=== PATIENT | female | born 1950 | race Two or more races ===

== ENCOUNTER → 2020-07-26 | Outpatient (CLI) | payer OTHER | END | disposition home or self-care (01) | LOC: XYW 09:42 | PROVIDERS: ATTEND Psychiatry & Neurology Neurology | DX: I67.82 Cerebral ischemia (principal); G93.89 Other specified disorders of brain; J34.89 Other specified disorders of nose and nasal sinuses; R25.1 Tremor, unspecified | CPT/HCPCS: 70551 ==

== ENCOUNTER 2021-05-14 09:42 | Emergency (ER) | payer OTHER ==
[~2021-05-14] VITALS: Ht 162.6 cm; Wt 90.7 kg
[2021-05-14] MEDS ORDERED: HYDROcodone-ACET 10/325MG TAB PO ONE (10:15)
[2021-05-14 10:23] LABS: Basophils # (auto) 0 10 ^3/uL (0-0.2); Basophils % (auto) 0.5 % (0.0-2.0); Eosinophils # (auto) 0 10 ^3/uL (0-0.8); Eosinophils % (auto) 0.2 % (0.0-7.0); Hemoglobin 12.5 g/dL (12.2-16.2); Lymphocytes % (auto) 13.6 % (10.0-50.0); Mean Corpuscular Hemoglobin 32.2 pg (28.0-32.0); Mean Corpuscular Hgb Conc. 33.8 g/dL (32.0-36.0); Mean Corpuscular Volume 95.1 fL (80.0-100.0); Monocytes # (auto) 0.6 10 ^3/uL (0-1.3); Neutrophils # (auto) 5.6 10 ^3/uL (1.6-8.6); Neutrophils % (auto) 77.7 % (37.0-80.0); Nucleated Red Blood Cells % 0.1 %; Red Blood Cells 3.89 10^6/uL (4.0-5.20); Red Cell Distribution Width 13.1 % (11.8-14.3); White Blood Cell 7.3 10^3/uL (4.4-10.8)
[2021-05-14 10:41] LABS: Albumin 2.9 g/dL (3.4-5.0); Calcium 8.8 mg/dL (8.5-10.1); Potassium 3.6 mmol/L (3.5-5.1)
[2021-05-14 10:45] LABS: BUN/Creatinine Ratio 14.3; Bilirubin, Total 1.2 mg/dL (0.2-1.0); Total Protein 8.1 g/dL (6.4-8.2)
[2021-05-14 12:00] VITALS: BP 136/62
[2021-05-14 12:18] LABS: Urine Bacteria NONE SEEN /hpf (None Seen); Urine Blood Negative /uL (Negative); Urine Mucus FEW (None Seen); Urine Specific Gravity 1.018 (1.001-1.035); Urine WBC 2 /hpf (0 - 5)
== END 2021-05-14 12:56 | disposition home or self-care (01) ==
LOC: EDBD 09:42 → ER 09:42
DX: M51.36 Other intervertebral disc degeneration, lumbar region (principal); E11.9 Type 2 diabetes mellitus without complications; I10 Essential (primary) hypertension; Z90.89 Acquired absence of other organs
CPT/HCPCS: 36415; 72131; 80053; 81001; 85025

== ENCOUNTER → 2022-01-24 | Outpatient (CLI) | payer OTHER ==
[2022-01-24 13:04] LABS: Basophils # (auto) 0 10 ^3/uL (0-0.2); Basophils % (auto) 0.5 % (0.0-2.0); Eosinophils # (auto) 0.1 10 ^3/uL (0-0.8); Eosinophils % (auto) 1.5 % (0.0-7.0); Hematocrit 39.5 % (36.0-46.0); Hemoglobin 13.7 g/dL (12.2-16.2); Lymphocytes # (auto) 2.3 10 ^3/uL (0.4-5.4); Lymphocytes % (auto) 42.7 % (10.0-50.0); Mean Corpuscular Hemoglobin 33.2 pg (28.0-32.0); Mean Corpuscular Hgb Conc. 34.7 g/dL (32.0-36.0); Mean Corpuscular Volume 95.7 fL (80.0-100.0); Monocytes # (auto) 0.3 10 ^3/uL (0-1.3); Monocytes % (auto) 6.5 % (0.0-12.0); Neutrophils # (auto) 2.6 10 ^3/uL (1.6-8.6); Neutrophils % (auto) 48.8 % (37.0-80.0); Red Blood Cells 4.13 10^6/uL (4.0-5.20); Red Cell Distribution Width 13.1 % (11.8-14.3); White Blood Cell 5.4 10^3/uL (4.4-10.8)
[2022-01-24 13:46] LABS: Potassium 4.8 mmol/L (3.5-5.1)
[2022-01-24 13:47] LABS: Albumin 3.8 g/dL (3.4-5.0); Calcium 8.9 mg/dL (8.5-10.1)
[2022-01-24 13:53] LABS: BUN/Creatinine Ratio 19.8; Bilirubin, Total 1.1 mg/dL (0.2-1.0); Total Protein 7.6 g/dL (6.4-8.2)
== END | disposition home or self-care (01) ==
LOC: LAB 12:38
PROVIDERS: ATTEND Student in an Organized Health Care Education/Training Program
DX: Z12.11 Encounter for screening for malignant neoplasm of colon (principal); I10 Essential (primary) hypertension; E11.9 Type 2 diabetes mellitus without complications; E78.5 Hyperlipidemia, unspecified
CPT/HCPCS: 36415; 80053; 80061; 82043; 83036; 85025

== ENCOUNTER → 2022-01-24 | Outpatient (CLI) | payer OTHER | END | disposition home or self-care (01) | LOC: LAB 13:01 | PROVIDERS: ATTEND Internal Medicine | DX: Z12.11 Encounter for screening for malignant neoplasm of colon (principal) | CPT/HCPCS: 82270 ==

== ENCOUNTER 2022-04-08 08:49 | Inpatient (IN) | payer OTHER ==
[2022-04-04 14:33] LABS: Basophils # (auto) 0 10 ^3/uL (0-0.2); Basophils % (auto) 0.4 % (0.0-2.0); Eosinophils # (auto) 0.1 10 ^3/uL (0-0.8); Eosinophils % (auto) 1.8 % (0.0-7.0); Hemoglobin 13.5 g/dL (12.2-16.2); Lymphocytes # (auto) 2.5 10 ^3/uL (0.4-5.4); Lymphocytes % (auto) 38.9 % (10.0-50.0); Mean Corpuscular Hemoglobin 33.2 pg (28.0-32.0); Mean Corpuscular Hgb Conc. 34.7 g/dL (32.0-36.0); Mean Corpuscular Volume 95.5 fL (80.0-100.0); Monocytes # (auto) 0.4 10 ^3/uL (0-1.3); Monocytes % (auto) 6.8 % (0.0-12.0); Neutrophils # (auto) 3.3 10 ^3/uL (1.6-8.6); Neutrophils % (auto) 52.1 % (37.0-80.0); Nucleated Red Blood Cells % 0.2 %; Red Blood Cells 4.08 10^6/uL (4.0-5.20); Red Cell Distribution Width 13.5 % (11.8-14.3); White Blood Cell 6.3 10^3/uL (4.4-10.8)
[2022-04-04 14:42] LABS: Urine Bacteria NONE SEEN /hpf (None Seen); Urine Blood Negative /uL (Negative); Urine Hyaline Cast FEW /lpf (0 - 2); Urine Specific Gravity 1.024 (1.001-1.035); Urine WBC 6 /hpf (0 - 5)
[2022-04-04 14:46] LABS: INR 1.13 (0.9-1.15); Partial Thromboplastin Time 24.6 sec (24.6-33.4)
[2022-04-04 14:50] LABS: Albumin 4.1 g/dL (3.4-5.0); Calcium 8.8 mg/dL (8.5-10.1); Potassium 4.6 mmol/L (3.5-5.1)
[2022-04-04 14:53] LABS: BUN/Creatinine Ratio 26.5; Bilirubin, Total 0.7 mg/dL (0.2-1.0); Total Protein 7.9 g/dL (6.4-8.2)
[~2022-04-08] VITALS: Ht 162.6 cm; Wt 77.9 kg
[~2022-04-08 08:49] MED LIST: AMLO-496 PO; LOSA-39 PO; METF-490 PO; METO-159 PO; PANT40TA2 PO; SERT-160 PO; SIMV10TA84 PO
[2022-04-08] MEDS ORDERED: ceFAZolin 1GM/50ML 100 ML IV ONE (09:20)
[2022-04-08] MEDS ORDERED: ACETAMINOPHEN IV 100 ML IV ONE (09:20)
[2022-04-08] MEDS ORDERED: PREGABALIN CAPSULE 75 MG CAP PO ONE (09:30)
[2022-04-08] MEDS ORDERED: ACETAMINOPHEN IV 1000 MG/100ML (10MG/ML) IV ONE (09:30)
[2022-04-08] MEDS ORDERED: CELECOXIB 100 MG CAP PO ONE (09:30)
[2022-04-08] MEDS ORDERED: KETOROLAC TROMETH 30 MG/ML 1ML VIAL ONE (10:26)
[2022-04-08] MEDS ORDERED: VANCOMYCIN HCL 1000 MG VL ONE (10:26)
[2022-04-08] MEDS ORDERED: TRANEXAMIC ACID 20 ML ONE (10:27)
[2022-04-08] MEDS ORDERED: fentaNYL CITRATE 100 MCG/2 ML VL ONE (10:39)
[2022-04-08] MEDS ORDERED: MIDAZOLAM HCL 2MG/2ML 2ml VIAL (1mg/ml) ONE (10:39)
[2022-04-08] MEDS ORDERED: GLYCOPYRROLATE 0.2 MG/ML 1ML VIAL ONE (10:39)
[2022-04-08] MEDS ORDERED: ONDANSETRON HCL 4 MG/2 ML VIAL ONE (10:39)
[2022-04-08] MEDS ORDERED: PROPOFOL 10 MG/ML 20 ML IV ONE (10:39)
[2022-04-08] MEDS ORDERED: KETAMINE HCL 10 ML ONE (10:39)
[2022-04-08] MEDS ORDERED: ePHEDrine SULFATE 50 MG/ML AMP ONE (10:39)
[2022-04-08] MEDS ORDERED: MORPHINE SULF PF 5 MG/10 ML VIAL ONE (10:53)
[2022-04-08] MEDS ORDERED: BUPIVACAINE 0.75% INJ 10ML MPV SDV IJ ONE (10:55)
[2022-04-08] MEDS ORDERED: BUPIVACAINE/DEXTROSE MPF 0.75% 2 ML AMP IT ONE (10:58)
[2022-04-08] MEDS ORDERED: HYDROmorphone HCL 2 MG/ML VL/or syr IV PRN (13:00)
[2022-04-08] MEDS: LACTATED RINGER'S 1,000 ML IV SCH ×2 (13:00→21:27)
[2022-04-08] MEDS ORDERED: ceFAZolin 1GM/50ML 50 ML IV SCH (13:00)
[2022-04-08] MEDS ORDERED: DEXTROSE (50%) 50ML SYRG IV PRN (13:00)
[2022-04-08] MEDS ORDERED: ONDANSETRON HCL 4 MG/2 ML VIAL IV PRN ×3 (13:00→14:00)
[2022-04-08] MEDS ORDERED: diphenhdrAMINE HCL 50 MG/1 ML VL IV PRN (14:00)
[2022-04-08] MEDS ORDERED: KETOROLAC TROMETH 30 MG/ML 1ML VIAL IV PRN (14:00)
[2022-04-08] MEDS: SODIUM CHLOR 0.9% PF (SALINE LOCK) 10ML VIAL/SYR IV SCH ×2 (14:00→20:42)
[2022-04-08] MEDS ORDERED: NALOXONE HCL 0.4 MG/ML VIAL IV PRN (14:00)
[2022-04-08] MEDS ORDERED: DexAMETHasone SOD PHOS 10MG/1ML VIAL INJ IV PRN (14:00)
[2022-04-08] MEDS ORDERED: ACCU-CHEK COMFORT CURVE STRIP VI ONE (14:00)
[2022-04-08] MEDS: ceFAZolin 1GM/50ML 50 ML IV SCH ×2 (17:00→22:16)
[2022-04-08] MEDS: ACCU-CHEK COMFORT CURVE STRIP VI SCH ×2 (17:00→21:51)
[2022-04-08] MEDS: PATIENTS OWN MEDICATION (Simvastatin 10 MG) PO SCH (18:00)
[2022-04-08] MEDS: InsuLIN REG 1unit/0.01ml Soln (100units/ml) SC SCH ×2 (18:30→21:48)
[2022-04-08] MEDS ORDERED: InsuLIN REG 1unit/0.01ml Soln (100units/ml) ONE (18:43)
[2022-04-08] MEDS: LOSARTAN POTASSIUM 50 MG TAB PO SCH (20:42)
[2022-04-08] MEDS: SERTRALINE HCL 50 MG TAB PO SCH (20:43)
[2022-04-08] MEDS: DOCUSATE SOD 100 MG CAP PO SCH (20:43)
[2022-04-08 21:06] VITALS: BP 131/61
[2022-04-08] MEDS: METOPROLOL TARTRATE 50 MG TAB PO SCH (21:26)
[2022-04-08] MEDS: metFORMIN HYDROCHLORIDE 500 MG TAB PO SCH (21:51)
[2022-04-08 22:06] VITALS: BP 103/77
[2022-04-08 23:06] VITALS: BP 116/57
[2022-04-09] VITALS (17 sets, daily range): BP systolic 113–145; BP diastolic 40–98
[2022-04-09] MEDS: ceFAZolin 1GM/50ML 50 ML IV SCH (04:18)
[2022-04-09] MEDS: SODIUM CHLOR 0.9% PF (SALINE LOCK) 10ML VIAL/SYR IV SCH ×3 (05:25→21:31)
[2022-04-09] MEDS: ACCU-CHEK COMFORT CURVE STRIP VI SCH ×4 (06:20→21:30)
[2022-04-09] MEDS: InsuLIN REG 1unit/0.01ml Soln (100units/ml) SC SCH ×4 (06:21→21:29)
[2022-04-09 06:31] LABS: Hematocrit 36.1 % (36.0-46.0)
[2022-04-09 06:52] LABS: Albumin 3.5 g/dL (3.4-5.0); Calcium 8.5 mg/dL (8.5-10.1)
[2022-04-09 07:05] LABS: Bilirubin, Total 0.5 mg/dL (0.2-1.0); Total Protein 6.6 g/dL (6.4-8.2)
[2022-04-09] MEDS: metFORMIN HYDROCHLORIDE 500 MG TAB PO SCH ×2 (09:50→21:31)
[2022-04-09] MEDS: METOPROLOL TARTRATE 50 MG TAB PO SCH ×2 (09:51→21:28)
[2022-04-09] MEDS: amLODIPine BESYLATE 5 MG TAB PO SCH (09:52)
[2022-04-09] MEDS: PANTOPRAZOLE 40 MG TAB PO SCH (09:52)
[2022-04-09] MEDS: ENOXAPARIN SOD 40 MG/0.4 ML SYRINGE SC SCH (09:53)
[2022-04-09] MEDS: SERTRALINE HCL 50 MG TAB PO SCH ×2 (09:53→21:29)
[2022-04-09] MEDS: DOCUSATE SOD 100 MG CAP PO SCH ×2 (10:00→21:32)
[2022-04-09] MEDS ORDERED: FUROSEMIDE 20 MG/2 ML VIAL IV ONE (12:15)
[2022-04-09] MEDS ORDERED: HYDROmorphone HCL 2 MG/ML VL/or syr IV PRN (12:15)
[2022-04-09] MEDS: PATIENTS OWN MEDICATION (Simvastatin 10 MG) PO SCH (18:00)
[2022-04-09] MEDS: LOSARTAN POTASSIUM 50 MG TAB PO SCH (18:19)
[2022-04-09] MEDS: HYDROcodone-ACET 5/325MG TAB PO PRN (21:32)
[2022-04-10] MEDS: HYDROcodone-ACET 5/325MG TAB PO PRN ×2 (02:40→10:02)
[2022-04-10 05:00] VITALS: BP 149/63
[2022-04-10] MEDS: SODIUM CHLOR 0.9% PF (SALINE LOCK) 10ML VIAL/SYR IV SCH (05:26)
[2022-04-10] MEDS: InsuLIN REG 1unit/0.01ml Soln (100units/ml) SC SCH ×2 (06:05→11:30)
[2022-04-10] MEDS: ACCU-CHEK COMFORT CURVE STRIP VI SCH ×2 (06:06→11:30)
[2022-04-10 07:17] LABS: Basophils # (auto) 0 10 ^3/uL (0-0.2); Basophils % (auto) 0.1 % (0.0-2.0); Eosinophils # (auto) 0 10 ^3/uL (0-0.8); Eosinophils % (auto) 0.2 % (0.0-7.0); Hematocrit 34.1 % (36.0-46.0); Hemoglobin 11.7 g/dL (12.2-16.2); Lymphocytes # (auto) 0.9 10 ^3/uL (0.4-5.4); Lymphocytes % (auto) 14.3 % (10.0-50.0); Mean Corpuscular Hemoglobin 33.2 pg (28.0-32.0); Mean Corpuscular Hgb Conc. 34.4 g/dL (32.0-36.0); Mean Corpuscular Volume 96.7 fL (80.0-100.0); Monocytes # (auto) 0.5 10 ^3/uL (0-1.3); Monocytes % (auto) 7.3 % (0.0-12.0); Neutrophils # (auto) 4.9 10 ^3/uL (1.6-8.6); Neutrophils % (auto) 78.1 % (37.0-80.0); Nucleated Red Blood Cells % 0.2 %; Red Blood Cells 3.53 10^6/uL (4.0-5.20); Red Cell Distribution Width 13.4 % (11.8-14.3); White Blood Cell 6.3 10^3/uL (4.4-10.8)
[2022-04-10 08:36] VITALS: BP 142/76
[2022-04-10 08:37] LABS: BUN/Creatinine Ratio 31.8; Calcium 8.6 mg/dL (8.5-10.1); Potassium 3.9 mmol/L (3.5-5.1)
[2022-04-10] MEDS: DOCUSATE SOD 100 MG CAP PO SCH (10:00)
[2022-04-10] MEDS: metFORMIN HYDROCHLORIDE 500 MG TAB PO SCH (10:02)
[2022-04-10] MEDS: ENOXAPARIN SOD 40 MG/0.4 ML SYRINGE SC SCH (10:02)
[2022-04-10] MEDS: PANTOPRAZOLE 40 MG TAB PO SCH (10:03)
[2022-04-10] MEDS: SERTRALINE HCL 50 MG TAB PO SCH (10:03)
[2022-04-10] MEDS: amLODIPine BESYLATE 5 MG TAB PO SCH (10:03)
[2022-04-10] MEDS: METOPROLOL TARTRATE 50 MG TAB PO SCH (10:03)
[2022-04-10 11:32] VITALS: BP 142/76
[2022-04-10 12:47] VITALS: BP 146/86
== END 2022-04-10 13:20 | disposition home health service (06) | DRG 470 ==
LOC: SUR 08:49 → TELE 15:22 → TELE-CENTR 20:13
PROVIDERS: ADMIT Psychiatry & Neurology Neurology; ATTEND Internal Medicine
PROC: 0SRD0J9 Replacement of Left Knee Joint with Synthetic Substitute, Cemented, Open Approach (ICD-10-PCS; principal; 2022-04-08 11:05)
DX: M17.12 Unilateral primary osteoarthritis, left knee (principal); Z20.822 Contact with and (suspected) exposure to COVID-19; E11.9 Type 2 diabetes mellitus without complications; E66.9 Obesity, unspecified; F32.A Depression, unspecified; E78.5 Hyperlipidemia, unspecified; I10 Essential (primary) hypertension; Z68.29 Body mass index [BMI] 29.0-29.9, adult
CPT/HCPCS: 36415; 71045; 73562; 80048; 80053; 81001; 82962; 85014; 85018; 85025; 85610; 85730; 86850; 86900; 86901; 97110; 97116; G0378; J0131; J0690; J1815; J1885; J2250; J2405; J2704; J3490

== ENCOUNTER → 2022-11-06 | Outpatient (CLI) | payer OTHER ==
[~2022-11-06] MED LIST changes: -AMLO-496 PO; +AMLO1TAB23 PO; -LOSA-39 PO; +LOSA100T58 PO; +SIMV10TA20 PO; -SIMV10TA84 PO
[2022-11-06 13:30] LABS: Basophils # (auto) 0 10 ^3/uL (0-0.2); Basophils % (auto) 0.3 % (0.0-2.0); Eosinophils # (auto) 0.1 10 ^3/uL (0-0.8); Eosinophils % (auto) 1.7 % (0.0-7.0); Hemoglobin 13.3 g/dL (12.2-16.2); Mean Corpuscular Hemoglobin 32.4 pg (28.0-32.0); Mean Corpuscular Hgb Conc. 33.3 g/dL (32.0-36.0); Mean Corpuscular Volume 97.1 fL (80.0-100.0); Monocytes # (auto) 0.4 10 ^3/uL (0-1.3); Monocytes % (auto) 6.3 % (0.0-12.0); Neutrophils # (auto) 3.5 10 ^3/uL (1.6-8.6); Neutrophils % (auto) 57.7 % (37.0-80.0); Nucleated Red Blood Cells % 0.1 %; Red Blood Cells 4.12 10^6/uL (4.0-5.20)
[2022-11-06 14:04] LABS: Albumin 3.9 g/dL (3.4-5.0); Calcium 9.1 mg/dL (8.5-10.1); Potassium 4.9 mmol/L (3.5-5.1)
[2022-11-06 14:07] LABS: BUN/Creatinine Ratio 25.3 (10.0-20.0)
[2022-11-06 14:09] LABS: Bilirubin, Total 0.9 mg/dL (0.2-1.0); Total Protein 7.7 g/dL (6.4-8.2)
[2022-11-06 18:30] LABS: Micro Albumin 93.8 mg/L (0-30.0)
== END | disposition home or self-care (01) ==
LOC: LAB 12:54
PROVIDERS: ATTEND Internal Medicine
DX: E11.9 Type 2 diabetes mellitus without complications (principal); E66.9 Obesity, unspecified
CPT/HCPCS: 36415; 80053; 80061; 82043; 82270; 82306; 82570; 83036; 84439; 84443; 85025

== ENCOUNTER → 2023-07-14 | Outpatient (CLI) | payer OTHER ==
[~2023-07-14] VITALS: Ht 160 cm; Wt 77.1 kg
[~2023-07-14] MED LIST changes: +LOSA-535 PO; -LOSA100T58 PO
[2023-07-14] MEDS: ADENOSINE 65 MG in GIVE UN-DILUTED 0 ML IV STA (12:31)
== END | disposition home or self-care (01) ==
LOC: XYW 10:11
PROVIDERS: ATTEND Internal Medicine
DX: Z01.810 Encounter for preprocedural cardiovascular examination (principal); M46.06 Spinal enthesopathy, lumbar region; M19.90 Unspecified osteoarthritis, unspecified site; M17.10 Unilateral primary osteoarthritis, unspecified knee; I10 Essential (primary) hypertension; E11.9 Type 2 diabetes mellitus without complications; E78.5 Hyperlipidemia, unspecified
CPT/HCPCS: 78452; 93017; A9500; J0153

== ENCOUNTER → 2023-11-18 | Outpatient (CLI) | payer OTHER ==
[2023-11-19 11:53] LABS: Urine Bacteria None Seen /hpf (None Seen); Urine Blood Negative /uL (Negative); Urine Clarity Clear (Clear); Urine Color Light-Yellow (Yellow); Urine Protein, UAD Negative (Negative); Urine Specific Gravity 1.017 (1.001-1.035); Urine Urobilinogen Normal (Negative); Urine WBC 18 /hpf (0 - 5)
== END | disposition home or self-care (01) ==
LOC: LAB 14:12
PROVIDERS: ATTEND Internal Medicine
DX: N39.0 Urinary tract infection, site not specified (principal); R32 Unspecified urinary incontinence
CPT/HCPCS: 81001; 87086

== ENCOUNTER 2023-12-01 16:10 | Emergency (ER) | payer OTHER ==
[~2023-12-01] VITALS: Ht 160 cm; Wt 80.9 kg
[2023-12-01 18:50] VITALS: BP 179/62; PULSE 68; RESP 18; TEMP 98; O2SAT 98
== END 2023-12-01 20:05 | disposition home or self-care (01) ==
LOC: ER 16:10
DX: S93.602A Unspecified sprain of left foot, initial encounter (principal); E11.9 Type 2 diabetes mellitus without complications; I10 Essential (primary) hypertension; Z79.899 Other long term (current) drug therapy; Z90.49 Acquired absence of other specified parts of digestive tract; Z98.891 History of uterine scar from previous surgery; Z98.890 Other specified postprocedural states; W18.09XA Striking against other object with subsequent fall, initial encounter; Y93.89 Activity, other specified; Y92.89 Other specified places as the place of occurrence of the external cause; Y99.8 Other external cause status
CPT/HCPCS: 73630

== ENCOUNTER → 2024-01-20 | Outpatient (CLI) | payer OTHER | END | disposition home or self-care (01) | LOC: LAB 14:30 | PROVIDERS: ATTEND Student in an Organized Health Care Education/Training Program | DX: Z12.11 Encounter for screening for malignant neoplasm of colon (principal) | CPT/HCPCS: 82270 ==

== ENCOUNTER → 2024-04-06 | Outpatient (CLI) | payer OTHER ==
[2024-04-06 12:18] LABS: Urine Bacteria None Seen /hpf (None Seen)
[2024-04-06 12:33] LABS: Urine Blood 1+ /uL (Negative); Urine Clarity Ex.Turbid (Clear); Urine Color Yellow (Yellow); Urine Hyaline Cast MOD /lpf (0 - 2); Urine Protein, UAD 2+ (Negative); Urine Specific Gravity 1.023 (1.001-1.035); Urine Squamous Epithelial Cell FEW /hpf (<5); Urine Urobilinogen Normal (Negative); Urine WBC 2174 /hpf (0 - 5); Urine WBC Clumps PRESENT /hpf (None Seen)
[2024-04-06 12:55] LABS: Basophils # (auto) 0 10 ^3/uL (0-0.2); Basophils % (auto) 0.4 % (0.0-2.0); Eosinophils # (auto) 0.1 10 ^3/uL (0-0.8); Eosinophils % (auto) 2.8 % (0.0-7.0); Hematocrit 39.3 % (36.0-46.0); Hemoglobin 13.3 g/dL (12.2-16.2); Lymphocytes # (auto) 1.6 10 ^3/uL (0.4-5.4); Lymphocytes % (auto) 31.4 % (10.0-50.0); Mean Corpuscular Hemoglobin 32.8 pg (28.0-32.0); Mean Corpuscular Hgb Conc. 33.8 g/dL (32.0-36.0); Mean Corpuscular Volume 97.1 fL (80.0-100.0); Monocytes # (auto) 0.3 10 ^3/uL (0-1.3); Monocytes % (auto) 6.8 % (0.0-12.0); Neutrophils % (auto) 58.6 % (37.0-80.0); Nucleated Red Blood Cells % 0.1 %; Platelet Count (auto) 144 10^3/uL (140-450); Red Blood Cells 4.05 10^6/uL (4.0-5.20); White Blood Cell 5.1 10^3/uL (4.4-10.8)
[2024-04-06 13:00] LABS: Alanine Aminotransferase 13 U/L (7-40); Albumin 4.5 g/dL (3.2-4.8); Alkaline Phosphatase 97 U/L (46-116); Anion Gap 8 (5-15); Aspartate Aminotransferase 17 U/L (13-40); BUN/Creatinine Ratio 15.1 (10.0-20.0); Bilirubin, Total 1.2 mg/dL (0.2-1.0); Blood Urea Nitrogen 13 mg/dL (9-23); Carbon Dioxide 26 mmol/L (20-31); Chloride 104 mmol/L (98-107); Potassium 4.9 mmol/L (3.5-5.1); Sodium 138 mmol/L (136-145); Total Protein 7.4 g/dL (5.7-8.2)
[2024-04-06 13:03] LABS: Glucose 204 mg/dL (74-106)
[2024-04-06 13:41] LABS: Triglycerides 131 mg/dL (< 150)
[2024-04-06 13:42] LABS: LDL Cholesterol 66 mg/dL (< 100)
[2024-04-06 13:43] LABS: Cholesterol 147 mg/dL (< 200)
[2024-04-06 13:45] LABS: HDL Cholesterol 73 mg/dL (40-59)
== END | disposition home or self-care (01) ==
LOC: LAB 12:04
PROVIDERS: ATTEND Internal Medicine
DX: Z00.01 Encounter for general adult medical examination with abnormal findings (principal); I12.9 Hypertensive chronic kidney disease with stage 1 through stage 4 chronic kidney disease, or unspecified chronic kidney disease; E11.22 Type 2 diabetes mellitus with diabetic chronic kidney disease; N18.2 Chronic kidney disease, stage 2 (mild); N39.0 Urinary tract infection, site not specified
CPT/HCPCS: 36415; 80053; 80061; 81001; 83036; 84439; 84443; 85025

== ENCOUNTER → 2024-04-13 | Outpatient (CLI) | payer OTHER | END | disposition home or self-care (01) | LOC: LAB 15:43 | PROVIDERS: ATTEND Internal Medicine | DX: N39.0 Urinary tract infection, site not specified (principal) | CPT/HCPCS: 87086; 87088; 87186 ==

== ENCOUNTER 2024-05-29 08:39 | Inpatient (IN) | payer OTHER ==
[~2024-05-29] VITALS: Ht 165.1 cm; Wt 81.0 kg
--- NOTE | 2024-05-29 08:54 | ED.PDOC ---
Musculoskeletal HPI Comments HPI: 73-year-old female brought in by EMS presents s/p mechanical fall at home x onset this morning. Patient states that she tripped and fell over her dogs and landed on her head, then right arm, then right knee. She denies any arm pain. Patient denies losing consciousness. Patient is now reporting 10/10 right knee p ain and states that it is painful to move and even at stand-still. no obvious deformity is noted. Past Medical History: DM, HTN, HLD, CARL'S PALSY, SHINGLES, STAGE 3 CKD, DDD, Past Surgical History: BILATERAL KNEE REPLACEMENT, APPENDECTOMY, TUBAL LIGATION, RIGHT CARPAL TUNNEL, CATARACTS, CORDON'S CYSTS RESECTION Social History: DENIES Medications: METFORMIN, LOSARTAN, METOPROLOL, AMLODIPINE, SIMVASTATIN, SERTRALINE, PANTOPRAZOLE, SILVER CENTRUM, VITAMIN C Allergies: NKDA HPI: Poor Historian. REVIEW OF SYSTEMS: CONSTITUTIONAL: Denies acute: fever, diaphoresis, chills, generalized weakness. HEAD: Denies acute: headache, photophobia Eyes: Denies acute: Double vision, vision loss, eye pain, eye discharge. EARS: Denies acute: tinnitus, hearing loss, ear discharge, ear pain, THROAT: Denies acute: sore throat, swelling, difficulty swallowing , pain with swallowing, change in voice. NECK: Denies acute: neck pain, neck swelling, stiff neck. HEART: Denies acute : chest pain, palpitations, LUNGS: Denies acute: SOB, wheezing, cough, hemoptysis ABDOMEN: Denies acute: abdominal pain, Nausea, Vomiting, diarrhea, melena , hematemesis, hematochezia SKIN: Denies acute: rash, redness, lesions, itchiness. EXTREMITIES: Denies acute: calf pain, numbness, tingling, weakness, Denies acute: Low back pain. Neuro: Denies acute: focal neurological deficit, motor or sensory focal neurological deficit, tremors, seizure like activity, confusion, dizziness, change in mental status, loss of bowel or bladder function, cauda equina like symptoms. : Denies acute: dysuria, hematuria, flank pain, increase in urinary frequency. PSYCH: Denies acute: hallucination, suicidal ideation, homicidal ideation. FEMALE: Denies acute: abnormal vaginal bleeding, foul odor, unusual discharge. PHYSICAL EXAM: General: no acute distress, awake and alert. Head: normocephalic, atraumatic. Neck: supple, trachea is midline, no swelling. Throat: Normal phonation. Eyes:, no erythema, no purulent discharge, no proptosis, no icterus. Heart: regular rate, regular rhythm, no significant murmur appreciated. Lungs: no apparent respiratory distress, Able to speak in full sentences. No wheezing, no rhonchi, no crackles. No stridors Clear to auscultation bilaterally. Abdomen: non tender to palpation, non distended, soft, no guarding, no rebound, + bowel sounds. Neuro: Awake, Alert, oriented to name, self, situation, follows commands GCS=15. Speech is normal. Skin: no petechia, no purpura, no cyanosis, non-pale, not jaundice. Lower extremities: --no - Pitting edema no deformity, no calf TTP. Right knee anterior tenderness to palpation. Minimal swelling. No erythema or bruising. Decreased range of motion of the right knee secondary to pain. Frances ent is neurovascularly intact in the affected extremity. Pedal pulses palpable. Motor and sensory are present. Makes eye contact. moves all four extremities. Face: no apparent facial droop. Pedal pulses are palpable. No nystagmus. No nuchal rigidity, Kernig's sign, Brudzinski's sign, no meningeal signs. ED COURSE: Time Seen by MD: 08:42 Primary Care Provider: UNKNOWN Reviewed Notes: Nurses Notes, Medications, Allergies Allergies: Coded Allergies: NO KNOWN ALLERGIES (Unverified , 05/14/21) Home Meds Reported Medications Pantoprazole Sodium Sesquihydr (Protonix) 40 Mg Tab, 40 MG PO DAILY, #30 TAB 04/04/22 Sertraline Hcl (Sertraline Hcl) 100 Mg Tab, 100 MG PO BID, TAB 04/04/22 Simvastatin (Simvastatin) 10 Mg Tab, 10 MG PO QPM, TAB 04/04/22 Amlodipine Besylate (Amlodipine Besylate) 10 Mg Tab, 10 MG PO DAILY, TAB 04/04/22 Metoprolol Tartrate (Metoprolol Tartrate) 100 Mg Tab, 100 MG PO BID, TAB 04/04/22 Losartan Potassium (Losartan Potassium) 100 Mg Tab, 100 MG PO QPM, TAB 04/04/22 Metformin Hydrochloride (METFORMIN HCL ER) 1,000 Mg Tab, 1000 MG PO BID, TAB 04/04/22 Information Source: Patient, Emergency Med Personnel Mode of Arrival: EMS Location: Right Past Medical History PAST MEDICAL HISTORY: DM, High Lipids, HTN Surgical History: Appendectomy, Tubal Ligation BROACH OPERATOR History: No Pertinent BROACH OPERATOR History Family History Family History: Unknown Social History Smoker: Non-Smoker Alcohol: Denies ETOH Use Drugs: Denies Drug Use Lives In: Home Was a procedure done? Was a procedure done?: No Differential Diagnosis EXT Differential Diagnosis: Fracture, Sprain, Dislocation, Laceration, Gout, DJD, Myocardial Infarction, Contusion, Strain, Rheumatoid, Septic, Neurovascular injury, Arthritis, Bursitis X-Ray, Labs, Meds, VS Vital Signs Date Time Temp Pulse Resp B/P (MAP) Pulse Ox O2 Delivery O2 Flow Rate FiO2 05/29/24 16:20 62 20 148/ 93 05/29/24 16:00 61 13 105/58 (74) 90 05/29/24 16:00 58 05/29/24 14:00 58 14 153/51 (85) 94 05/29/24 12:05 59 05/29/24 12:00 61 21 165/51 (89) 95 05/29/24 10:00 63 13 94 Room Air* 0 21 05/29/24 09:40 97.8 63 13 174/67 (102) 94 97.8 05/29/24 08:52 98.3 69 18 164/94 (117) 95 Lab Test 05/29/24 09:41 Range/Units White Blood Count 6.6 4.4-10.8 10^3/uL Red Blood Count 4.01 4.0-5.20 10^6/uL Hemoglobin 12.9 12.2-16.2 g/dL Hematocrit 37.7 36.0-46.0 % Mean Corpuscular Volume 94.0 80.0-100.0 fL Mean Corpuscular Hemoglobin 32.3 H 28.0-32.0 pg Mean Corpuscular Hemoglobin Concent 34.3 32.0-36.0 g/dL Red Cell Distribution Width 13.5 11.8-14.3 % Platelet Count 190 140-450 10^3/uL Mean Platelet Volume 7.6 6.9-10.8 fL Neutrophils (%) (Auto) 69.7 37.0-80.0 % Lymphocytes (%) (Auto) 21.9 10.0-50.0 % Monocytes (%) (Auto) 5.0 0.0-12.0 % Eosinophils (%) (Auto) 2.8 0.0-7.0 % Basophils (%) (Auto) 0.6 0.0-2.0 % Neutrophils # (Auto) 4.6 1.6-8.6 10 ^3/uL Lymphocytes # (Auto) 1.4 0.4-5.4 10 ^3/uL Monocytes # (Auto) 0.3 0-1.3 10 ^3/uL Eosinophils # (Auto) 0.2 0-0.8 10 ^3/uL Basophils # (Auto) 0 0-0.2 10 ^3/uL Nucleated Red Blood Cells 0.1 % Sodium Level 133 L 136-145 mmol/L Potassium Level 3.6 3.5-5.1 mmol/L Chloride Level 101 98-107 mmol/L Carbon Dioxide Level 25 20-31 mmol/L Anion Gap 7 5-15 Blood Urea Nitrogen 8 L 9-23 mg/dL Creatinine 0.75 0.550-1.02 mg/dL Glomerular Filtration Rate Calc 83 >90 mL/min BUN/Creatinine Ratio 10.7 10.0-20.0 Serum Glucose 275 H 74-106 mg/dL Lactic Acid Level 1.0 0.4-2.0 mmol/L Calcium Level 9.6 8.7-10.4 mg/dL Total Bilirubin 1.2 H 0.2-1.0 mg/dL Aspartate Amino Transferase (AST) 25 13-40 U/L Alanine Aminotransferase (ALT) 19 7-40 U/L Alkaline Phosphatase 110 46-116 U/L Creatine Kinase 37 34-145 U/L Total Protein 7.8 5.7-8.2 g/dL Albumin 4.6 3.2-4.8 g/dL Current Medications Medications (Trade) Dose Ordered Sig/Valeri Route Start Time Stop Time Status Last Admin Acetaminophen/ Hydrocodone Bitart ([place] 5/325MG Tab) 1 tab ONCE ONCE PO 05/29/24 10:15 05/29/24 10:17 DC 05/29/24 10:36 [facility] [id number] [place] [id number] Ph: [phone] DIAGNOSTIC IMAGING Diagnostic Imaging Report : [id number] Signed PATIENT: JOSESITO COLLADOACCT: [id number] UNIT: [id number] : 1950 LOC: ER ROOM / BED: / AGE / SEX: 73 / F ADM STATUS: REG ER SERVICE 6 ORDERING PHYSICIAN: URI SEVILLA DO PROCEDURE(s): HWOCT - HEAD WITHOUT CONTRAST REASON: fall ORDER NUMBER(s): [id number], ACCESSION NUMBER(s): [id number] EXAM: CT Head Without Intravenous Contrast CLINICAL INDICATION: fall TECHNIQUE: Axial computed tomography images of the head/brain without intravenous contrast. This CT exam was performed using one or more of the following dose reduction techniques: automated exposure control, adjustment of the mA and/or kV according to patient size, and/or use of iterative reconstruction technique. CONTRAST: RADIATION DOSE: CTDIvol = 51.61 mGy, DLP = 810.86 mGy-cm COMPARISON: None FINDINGS: BRAIN AND EXTRA-AXIAL SPACES: The cerebral and cerebellar sulci are prominent consistent with brain atrophy. No acute intracranial hemorrhage. If symptoms persist, further evaluation MRI is recommended. Mild areas of decreased attenuation in the deep cerebral white matter are consistent with mild small vessel ischemic/degenerative changes. BONES/JOINTS: Unremarkable. No acute fracture. SOFT TISSUES: Unremarkable. SINUSES: Unremarkable as visualized. No acute sinusitis. MASTOID AIR CELLS: Unremarkable as visualized. No mastoid effusion. OTHER FINDINGS: . IMPRESSION: 1. Generalized brain atrophy. 2. No acute intracranial hemorrhage. If symptoms persist, further evaluation MRI is recommended. 3. Mild small vessel ischemic/degenerative changes. ATED BY: KERRIE CAVAZOS MD DICTATED DATE/TIME: 05/29/24924 SIGNED BY: KERRIE CAVAZOS MD SIGNED DATE/TIME: 05/29/24924 [facility] [id number] [place] [address] Ph: [phone] DIAGNOSTIC IMAGING Diagnostic Imaging Report : [id number] Signed PATIENT: KRISTI COLLADO: [id number] UNIT: [id number] : 1950 LOC: ER ROOM / BED: / AGE / SEX: 73 / F ADM STATUS: REG ER SERVICE ORDERING PHYSICIAN: URI SEVILLA DO PROCEDURE(s): RHIP - R HIP COMPLETE XRAY REASON: fall ORDER NUMBER(s): [id number], ACCESSION NUMBER(s): [id number] CLINICAL INDICATION: fall TECHNIQUE: Frontal radiographic views of the pelvis and right hip were obtained. Comparison: None FINDINGS/IMPRESSION: There is no evidence of acute fracture or dislocation. Left hip joint space narrowing. The right hip joint is unremarkable. Alignment is anatomic. ATED BY: ABDIRAHMAN MORILLO MD DICTATED DATE/TIME: 05/29/24925 SIGNED BY: ABDIRAHMAN MORILLO MD SIGNED DATE/TIME: 05/29/24925 [place] [address] Ph: [phone] DIAGNOSTIC IMAGING Diagnostic Imaging Report : [id number] Signed PATIENT: KRISTI COLLADO: [id number] UNIT: [id number] : 1950 LOC: ER ROOM / BED: / AGE / SEX: 73 / F ADM STATUS: REG ER SERVICE ORDERING PHYSICIAN: URI SEVILLA DO PROCEDURE(s): RKN3 - R KNEE 3V XRAY REASON: fall ORDER NUMBER(s): [id number], ACCESSION NUMBER(s): [id number] EXAM: XR Right Knee, 1 or 2 Views CLINICAL INDICATION: fall TECHNIQUE: Frontal and/or lateral views of the right knee. COMPARISON: L KNEE 3V XRAY on DOS: 04/08/22 FINDINGS: BONES/JOINTS: See below. SOFT TISSUES: Suprapatellar soft tissue swelling. Subtle lucency of the patella could be nondisplaced fracture. OTHER FINDINGS: . IMPRESSION: Suprapatellar soft tissue swelling. Subtle lucency of the patella could be nondisplaced fracture. ATED BY: KERRIE CAVAZOS MD DICTATED DATE/TIME: 05/29/24933 SIGNED BY: KERRIE CAVAZOS MD SIGNED DATE/TIME: 05/29/24933 Time of 1ST Reevaluation: 09:12 Reevaluation 1ST: Unchanged Patient Education/Counseling: Diagnosis, Treatment, Prognosis Family Education/Counseling: Diagnosis, Treatment, Prognosis Comments Patient presented with the above HPI.---fall/knee injury---workup was initiated. patient was found with the above mentioned diagnosis. the following medications were ordered: please refer to order lists of meds and tests obtained by myself Dr. Sevilla. Patient ED course and VS have been stabilized. Patient has been reassessed in the ED and remained in a stable condition. Pertinent incidental findings were discussed with the patient and/or family. Patient/family voices understanding and is agreeable with plan. Patient has been observed in the ED adequate length of time to insure improvement/stability. Escalation of care considered: Consideration of escalation to observation or admission Patient was ADMITTED to the medicine team for further evaluation and treatment of their presentation. Patient was unable to ambulate here in the ED and refused to go home. Patient was placed up for admission. Knee immobilizer was applied. All the reports of any imaging studies that were ordered by myself were reviewed by myself. Departure 1 Departure Time of Disposition: 12:48 Impression: Primary Impression: Right knee pain Additional Impressions: Closed head injury Patella fracture Disposition: 01 HOME / SELF CARE / HOMELESS Admit to: Tele Condition: Stable Discharged With: Self Critical Care Note Critical Care Time?: No I personally scribed for URI SEVILLA DO ([email or web address]) on 05/29/24 at 08:54. Electronically submitted by Gurpreet De Jesus ([email or web address]). I personally scribed for URI SEVILLA DO ([email or web address]) on 05/29/24 at 08:58. Electronically submitted by Gurpreet De Jesus ([email or web address]). I personally scribed for URI SEVILLA DO ([email or web address]) on 05/29/24 at 09:34. Electronically submitted by Gurpreet De Jesus ([email or web address]). I personally scribed for URI SEVILLA DO ([email or web address]) on 05/29/24 at 10:15. Electronically submitted by Gurpreet De Jesus ([email or web address]). I personally scribed for URI SEVILLA DO ([email or web address]) on 05/29/24 at 11:01. Electronically submitted by Gurpreet De Jesus ([email or web address]). URI SEVILLA DO May 29, 2024 08:54
--- NOTE | 2024-05-29 09:27 | DVH ---
EXAM: CT Head Without Intravenous Contrast CLINICAL INDICATION: fall TECHNIQUE: Axial computed tomography images of the head/brain without intravenous contrast. This CT exam was performed using one or more of the following dose reduction techniques: automated exposure control, adjustment of the mA and/or kV according to patient size, and/or use of iterative reconstru ction technique. CONTRAST: RADIATION DOSE: CTDIvol = 51.61 mGy, DLP = 810.86 mGy-cm COMPARISON: None FINDINGS: BRAIN AND EXTRA-AXIAL SPACES: The cerebral and cerebellar sulci are prominent consistent with brain atrophy. No acute intracranial hemorrhage. If symptoms persist, further evaluation MRI is recommend ed. Mild areas of decreased attenuation in the deep cerebral white matter are consistent with mild s mall vessel ischemic/degenerative changes. BONES/JOINTS: Unremarkable. No acute fracture. SOFT TISSUES: Unremarkable. SINUSES: Unremarkable as visualized. No acute sinusitis. MASTOID AIR CELLS: Unremarkable as visualized. No mastoid effusion. OTHER FINDINGS: . IMPRESSION: 1. Generalized brain atrophy. 2. No acute intracranial hemorrhage. If symptoms persist, further evaluation MRI is recommended. 3. Mild small vessel ischemic/degenerative changes.
--- NOTE | 2024-05-29 09:28 | DVH ---
CLINICAL INDICATION: fall TECHNIQUE: Frontal radiographic views of the pelvis and right hip were obtained. Comparison: None FINDINGS/IMPRESSION: There is no evidence of acute fracture or dislocation. Left hip joint space narrowing. The right hip joint is unremarkable. Alignment is anatomic.
--- NOTE | 2024-05-29 09:36 | DVH ---
EXAM: XR Right Knee, 1 or 2 Views CLINICAL INDICATION: fall TECHNIQUE: Frontal and/or lateral views of the right knee. COMPARISON: L KNEE 3V XRAY on DOS: 04/08/22 FINDINGS: BONES/JOINTS: See below. SOFT TISSUES: Suprapatellar soft tissue swelling. Subtle lucency of the patella could be nondispla sweta fracture. OTHER FINDINGS: . IMPRESSION: Suprapatellar soft tissue swelling. Subtle lucency of the patella could be nondisplaced fracture.
[2024-05-29 09:59] LABS: Basophils # (auto) 0 10 ^3/uL (0-0.2); Basophils % (auto) 0.6 % (0.0-2.0); Eosinophils # (auto) 0.2 10 ^3/uL (0-0.8); Eosinophils % (auto) 2.8 % (0.0-7.0); Hematocrit 37.7 % (36.0-46.0); Hemoglobin 12.9 g/dL (12.2-16.2); Lymphocytes # (auto) 1.4 10 ^3/uL (0.4-5.4); Lymphocytes % (auto) 21.9 % (10.0-50.0); Mean Corpuscular Hemoglobin 32.3 pg (28.0-32.0); Mean Corpuscular Hgb Conc. 34.3 g/dL (32.0-36.0); Monocytes # (auto) 0.3 10 ^3/uL (0-1.3); Neutrophils # (auto) 4.6 10 ^3/uL (1.6-8.6); Neutrophils % (auto) 69.7 % (37.0-80.0); Nucleated Red Blood Cells % 0.1 %; Platelet Count (auto) 190 10^3/uL (140-450); Red Blood Cells 4.01 10^6/uL (4.0-5.20); Red Cell Distribution Width 13.5 % (11.8-14.3); White Blood Cell 6.6 10^3/uL (4.4-10.8)
[2024-05-29 10:00] VITALS: PULSE 63; RESP 13; O2SAT 94
[2024-05-29 10:15] LABS: Alanine Aminotransferase 19 U/L (7-40); Albumin 4.6 g/dL (3.2-4.8); Alkaline Phosphatase 110 U/L (46-116); Anion Gap 7 (5-15); Aspartate Aminotransferase 25 U/L (13-40); BUN/Creatinine Ratio 10.7 (10.0-20.0); Bilirubin, Total 1.2 mg/dL (0.2-1.0); Calcium 9.6 mg/dL (8.7-10.4); Carbon Dioxide 25 mmol/L (20-31); Chloride 101 mmol/L (98-107); Creatine Kinase IFCC 37 U/L (34-145); Potassium 3.6 mmol/L (3.5-5.1); Total Protein 7.8 g/dL (5.7-8.2)
[2024-05-29 10:20] LABS: Blood Urea Nitrogen 8 mg/dL (9-23); Glucose 275 mg/dL (74-106); Sodium 133 mmol/L (136-145)
[2024-05-29] MEDS: HYDROcodone-ACET 5/325MG TAB PO ONE (10:36)
[2024-05-29 19:32] VITALS: PULSE 69; RESP 15; O2SAT 93
[2024-05-29] MEDS ORDERED: ONDANSETRON HCL 4 MG/2 ML VIAL IV PRN (20:15)
[2024-05-29] MEDS ORDERED: ACETAMINOPHEN 325 MG TAB PO PRN (20:15)
[2024-05-29] MEDS ORDERED: DEXTROSE (50%) 50ML SYRG IV PRN (20:15)
[2024-05-29] MEDS ORDERED: DOCUSATE SOD 100 MG CAP PO PRN (20:15)
[2024-05-29] MEDS: amLODIPine BESYLATE 5 MG TAB PO ONE (20:42)
[2024-05-29] MEDS: SODIUM CHLORIDE 0.9% 1,000 ML IV SCH (20:42)
[2024-05-29] MEDS: HYDROcodone-ACET 5/325MG TAB PO PRN (20:54)
--- NOTE | 2024-05-29 21:34 | DVHHP2 ---
History of Present Illness Reason for Visit: Patella fracture History of Present Illness The patient is a 73-year-old female with past medical history of DM, hypertension, singles, Betancourt's palsy, and hyperlipidemia who presented to [facility] ED with complaint of right knee pain. Patient reports she had a mechanical fall when she tripped and fall over her dogs landing on her right knee, her head, and then right arm with sustained injury. Patient was seen and evaluated in the ED, laboratory data shows WBC 6.6, platelets 190, sodium 133, potassium 3.6, BUN 8, creatinine 0.75, GFR 83, glucose 275, blood pressure 171/97 trending down to 145/75, pulse 70, temperature 98.2 F, O2 saturation 93% on oxygen. Right knee x-ray revealing suprapatellar soft tissue swelling; subtotal lucency of the patella could be nondisplaced fracture. Please see medication orders section in the computer. On my assessment, patient denied chest pain, no headache, no dizziness, no loss of consciousness, no shortness of breaths, no nausea, no vomiting, no fever, no chills. Patient was admitted for further evaluation and medical management. Past Medical History DM, High Lipids, HTN, Shingles, Betancourt's palsy, DDD Past Surgical History Appendectomy, Tubal Ligation, Bilateral knee replacement, Cataracts, Alcantar's c yst resection, Carpal tunnel surgery. Family History Reviewed, noncontributory to the management of this case. Past Social History The patient lives at home, denies smoking, alcohol or illicit drugs abuse. Review of Systems Constitutional: Yes: Weakness; No: Fever, Chills, Sweats, Malaise, Other Eyes: No: Pain, Vision change, Conjunctivae inflammation, Eyelid inflammation, Other, Redness ENT: No: Ear pain, Ear discharge, Nose pain, Nose discharge, Nose congestion, Mouth pain, Mouth swelling, Throat pain, Throat swelling, Other Respiratory: No: Cough, Dry, Shortness of breath, SOB with excertion, Wheezing, Hemoptysis, Pleuritic Pain, Sputum, Wheezing, Other Cardiovascular: No: Chest Pain, Palpitations, Orthopnea, Paroxysmal Noc. Dyspnea, Edema, Lt Headedness, Other Gastrointestinal: No: Nausea, Vomiting, Abdominal Pain, Diarrhea, Constipation, Melena, Hematochezia, Other Genitourinary: No Dysuria, No Frequency, No Incontinence, No Hematuria, No Retention, No Other Musculoskeletal: other (Right knee pain); No: neck pain, shoulder pain, arm pain, back pain, hand pain, leg pain, foot pain Skin: No: Rash, Lesions, Jaundice, Bruising, Other Neurological: No: Weakness, Numbness, Incoordination, Change in speech, Confusion, Seizures, Other Allergies: Coded Allergies: NO KNOWN ALLERGIES (Unverified , 05/14/21) Medications Current Medications Medications Dose Ordered Sig/Valeri Route Start Time Stop Time Status Last Admin Dose Admin Atorvastatin Calcium 10 mg HS PO 05/29/24 22:00 Metoprolol Tartrate 50 mg BID PO 05/29/24 22:00 Hydralazine HCl 10 mg Q6HP PRN IV 05/29/24 20:15 Diagnostic Test (Pha) 1 strip IQ4HR 05/30/24 00:00 Insulin Human Regular IQ4HR SC 05/30/24 00:00 Dextrose 50 ml UD PRN IV 05/29/24 20:15 Sodium Chloride 1,000 ml @ 60 mls/hr [id number] IV 05/29/24 20:15 05/29/24 20:42 60 MLS/HR Acetaminophen/ Hydrocodone Bitart 1 tab Q4HP PRN PO 05/29/24 20:15 05/29/24 20:54 1 TAB Ondansetron HCl 4 mg Q4HP PRN IV 05/29/24 20:15 Docusate Sodium 100 mg BIDPRN PRN PO 05/29/24 20:15 Enoxaparin Sodium 40 mg DAILY SC 05/30/24 10:00 Acetaminophen 650 mg Q6HP PRN PO 05/29/24 20:15 Amlodipine Besylate 5 mg DAILY PO 05/30/24 10:00 Exam Vital Signs Vital Signs Date Time Temp Pulse Resp B/P (MAP) Pulse Ox O2 Delivery O2 Flow Rate FiO2 05/29/24 20:42 147/73 05/29/24 20:00 64 05/29/24 19:32 15 93 Room Air* 0 21 05/29/24 19:20 98.2 98.2 General Appearance: Alert, Oriented X3, Cooperative, No acute distress HEENT: Atraumatic, PERRLA, EOMI, Mucous membr. moist/pink Respiratory: Clear to auscultation, Normal air movement Cardiovascular: Regular rate, Normal S1, Normal S2, No murmurs Abdominal: Normal bowel sounds, Soft, No tenderness, No hepatospenomegaly, No masses Extremities: No clubbing, No cyanosis, No edema, Normal pulses, Other (Right knee tenderness) Skin: No rashes, No breakdown, No significant lesion Neuro: Normal speech, Normal tone, Sensation intact, Cranial nerves 3-12 NL, Reflexes 2+, Other (Generalized weakness) Psych/Mental Status: Mental status NL, Mood NL Labs/Xrays Labs Test 05/29/24 09:41 Range/Units White Blood Count 6.6 4.4-10.8 10^3/uL Red Blood Count 4.01 4.0-5.20 10^6/uL Hemoglobin 12.9 12.2-16.2 g/dL Hematocrit 37.7 36.0-46.0 % Mean Corpuscular Volume 94.0 80.0-100.0 fL Mean Corpuscular Hemoglobin 32.3 H 28.0-32.0 pg Mean Corpuscular Hemoglobin Concent 34.3 32.0-36.0 g/dL Red Cell Distribution Width 13.5 11.8-14.3 % Platelet Count 190 140-450 10^3/uL Mean Platelet Volume 7.6 6.9-10.8 fL Neutrophils (%) (Auto) 69.7 37.0-80.0 % Lymphocytes (%) (Auto) 21.9 10.0-50.0 % Monocytes (%) (Auto) 5.0 0.0-12.0 % Eosinophils (%) (Auto) 2.8 0.0-7.0 % Basophils (%) (Auto) 0.6 0.0-2.0 % Neutrophils # (Auto) 4.6 1.6-8.6 10 ^3/uL Lymphocytes # (Auto) 1.4 0.4-5.4 10 ^3/uL Monocytes # (Auto) 0.3 0-1.3 10 ^3/uL Eosinophils # (Auto) 0.2 0-0.8 10 ^3/uL Basophils # (Auto) 0 0-0.2 10 ^3/uL Nucleated Red Blood Cells 0.1 % Sodium Level 133 L 136-145 mmol/L Potassium Level 3.6 3.5-5.1 mmol/L Chloride Level 101 98-107 mmol/L Carbon Dioxide Level 25 20-31 mmol/L Anion Gap 7 5-15 Blood Urea Nitrogen 8 L 9-23 mg/dL Creatinine 0.75 0.550-1.02 mg/dL Glomerular Filtration Rate Calc 83 >90 mL/min BUN/Creatinine Ratio 10.7 10.0-20.0 Serum Glucose 275 H 74-106 mg/dL Hemoglobin A1c 7.4 H <5.7 % A1C Lactic Acid Level 1.0 0.4-2.0 mmol/L Calcium Level 9.6 8.7-10.4 mg/dL Total Bilirubin 1.2 H 0.2-1.0 mg/dL Aspartate Amino Transferase (AST) 25 13-40 U/L Alanine Aminotransferase (ALT) 19 7-40 U/L Alkaline Phosphatase 110 46-116 U/L Creatine Kinase 37 34-145 U/L Total Protein 7.8 5.7-8.2 g/dL Albumin 4.6 3.2-4.8 g/dL PATIENT: JOSESITO COLLADOACCT: [id number] UNIT: [id number] : 1950 LOC: ER ROOM / BED: / AGE / SEX: 73 / F ADM STATUS: REG ER SERVICE [id number] ORDERING PHYSICIAN: URI SEVILLA DO PROCEDURE(s): RKN3 - R KNEE 3V XRAY REASON: fall ORDER NUMBER(s): [id number], ACCESSION NUMBER(s): [id number] EXAM: XR Right Knee, 1 or 2 Views CLINICAL INDICATION: fall TECHNIQUE: Frontal and/or lateral views of the right knee. COMPARISON: L KNEE 3V XRAY on DOS: 04/08/22 FINDINGS: BONES/JOINTS: See below. SOFT TISSUES: Suprapatellar soft tissue swelling. Subtle lucency of the patella could be nondisplaced fracture. OTHER FINDINGS: IMPRESSION: Suprapatellar soft tissue swelling. Subtle lucency of the patella could be nondisplaced fracture. ORDERING PHYSICIAN: URI SEVILLA DO PROCEDURE(s): RHIP - R HIP COMPLETE XRAY REASON: fall ORDER NUMBER(s): [id number], ACCESSION NUMBER(s): [id number] CLINICAL INDICATION: fall TECHNIQUE: Frontal radiographic views of the pelvis and right hip were obtained. Comparison: None FINDINGS/IMPRESSION: There is no evidence of acute fracture or dislocation. Left hip joint space narrowing. The right hip joint is unremarkable. Alignment is anatomic. ORDERING PHYSICIAN: URI SEVILLA DO PROCEDURE(s): HWOCT - HEAD WITHOUT CONTRAST REASON: fall ORDER NUMBER(s): [id number], ACCESSION NUMBER(s): [id number] EXAM: CT Head Without Intravenous Contrast CLINICAL INDICATION: fall TECHNIQUE: Axial computed tomography images of the head/brain without intravenous contrast. This CT exam was performed using one or more of the following dose reduction techniques: automated exposure control, adjustment of the mA and/or kV according to patient size, and/or use of iterative reconstruction technique. CONTRAST: RADIATION DOSE: CTDIvol = 51.61 mGy, DLP = 810.86 mGy-cm COMPARISON: None FINDINGS: BRAIN AND EXTRA-AXIAL SPACES: The cerebral and cerebellar sulci are prominent consistent with brain atrophy. No acute intracranial hemorrhage. If symptoms persist, further evaluation MRI is recommended. Mild areas of decreased attenuation in the deep cerebral white matter are consistent with mild small vessel ischemic/degenerative changes. BONES/JOINTS: Unremarkable. No acute fracture. SOFT TISSUES: Unremarkable. SINUSES: Unremarkable as visualized. No acute sinusitis. MASTOID AIR CELLS: Unremarkable as visualized. No mastoid effusion. OTHER FINDINGS: IMPRESSION: 1. Generalized brain atrophy. 2. No acute intracranial hemorrhage. If symptoms persist, further evaluation MRI is recommended. 3. Mild small vessel ischemic/degenerative changes. Assessment/Plan Assessment/Plan Fall with injury Patella fracture Right knee pain Closed head injury Generalized weakness Plan 1. Admit to telemetry unit 2. Breathing treatment 3. Pain control management 4. Management of fluids and electrolytes 5. Consultation for orthopedic surgery 6. Diagnostic tests right knee x-ray 7. DVT prophylaxis-on Lovenox 8. Repeat labs CBC, CMP in a.m. 9. Continue with current medical management 10. Treatment plan discussed with patient and RN. Patient verbalized understanding. Plan discussed with: Patient, Other (RN) My Orders Orders - MATT BLANC DNP Procedure Category Date Status Time Atorvastatin (Lipitor) PHA 05/29/24 In Process 22:00 Metoprolol Tartrate PHA 05/29/24 In Process Tablet (Lopressor Ta 22:00 Hydralazine Injection PHA 05/29/24 In Process (Apresoline Inject 20:15 Consistent DIET 05/30/24 Transmitted Carb(Ccho)Diabetes Breakfast Glucose Blood PHA 05/30/24 In Process (Accu-Chek Comfort 00:00 Insulin R (Human) PHA 05/30/24 In Process (Insulin R) 00:00 Dextrose 50% Syringe PHA 05/29/24 In Process 20:15 Allergies DANIEL 05/29/24 In Process 20:13 Code Status CODE 05/29/24 Transmitted 20:13 Sodium Chloride 0.9% PHA 05/29/24 In Process 20:15 Oxygen Per Hour RT 05/29/24 Transmitted 20:13 Hydrocodone-Acet PHA 05/29/24 In Process 5/325mg Tab (Export 20:15 Ondansetron Hcl PHA 05/29/24 In Process (Zofran) 20:15 Docusate Sodium PHA 05/29/24 In Process Capsule (Colace 20:15 Enoxaparin Sodium PHA 05/30/24 In Process (Lovenox) 10:00 Fall Risk Precautions DANIEL 05/29/[address] 20:13 Complete Blood Count LAB 05/30/24 Verified 04:00 Comprehensive LAB 05/30/24 Verified Metabolic Panel 04:00 Condition: Serious DANIEL 05/29/24 In Process 20:13 Acetaminophen Tablet PHA 05/29/24 In Process (Tylenol Tablet) 20:15 Bedrest With Bathroom DANIEL 05/29/24 In Process Privileg 20:13 Sequential DANIEL 05/29/24 In Process Compression Device * Orthopedic Consult CONS 05/29/24 Transmitted 20:13 Amlodipine Tablet PHA 05/30/24 In Process (Norvasc Tablet) 10:00 Problem List: (1) Fall with injury (2) Patella fracture (3) Right knee pain (4) Closed head injury (5) Generalized weakness Date of Service: May 29, 2024 Billing Provider: MATT BLANC DNP Common Visit Codes: [id number] INP/OBS CARE (HIGH) MATT BLANC DNP May 29, 2024 21:34
[2024-05-29] MEDS ORDERED: MORPHINE SULFATE INJ 2 MG/ml SYRG IV PRN (21:45)
[2024-05-29] MEDS ORDERED: NITROGLYCERIN 0.4 MG SL TAB SL PRN (21:45)
[2024-05-29] MEDS: METOPROLOL TARTRATE 50 MG TAB PO SCH (21:58)
[2024-05-29] MEDS: ATORVASTATIN 20 MG TAB PO SCH (21:58)
[2024-05-29 23:15] LABS: Urine Bacteria None Seen /hpf (None Seen)
[2024-05-29] MEDS: ACCU-CHEK COMFORT CURVE STRIP VI SCH (23:20)
[2024-05-29] MEDS: InsuLIN REG 1unit/0.01ml Soln (100units/ml) SC SCH (23:20)
[2024-05-29 23:25] LABS: Urine Clarity Clear (Clear); Urine Color Yellow (Yellow); Urine Protein, UAD 1+ (Negative); Urine Specific Gravity 1.018 (1.001-1.035); Urine Urobilinogen Normal (Negative)
[2024-05-29 23:26] LABS: Urine Blood Negative /uL (Negative); Urine Squamous Epithelial Cell FEW /hpf (<5); Urine WBC 16 /HPF (0-5)
[2024-05-30] VITALS (8 sets, daily range): BP systolic 141–183; BP diastolic 50–66; PULSE 56–67; RESP 17–20; TEMP 97.6–98.3; O2SAT 90–97
[2024-05-30 06:42] LABS: Basophils # (auto) 0 10 ^3/uL (0-0.2); Basophils % (auto) 0.4 % (0.0-2.0); Eosinophils # (auto) 0.3 10 ^3/uL (0-0.8); Eosinophils % (auto) 5.7 % (0.0-7.0); Hemoglobin 12.3 g/dL (12.2-16.2); Lymphocytes % (auto) 32.7 % (10.0-50.0); Mean Corpuscular Hemoglobin 31.6 pg (28.0-32.0); Mean Corpuscular Hgb Conc. 34.3 g/dL (32.0-36.0); Mean Corpuscular Volume 92.3 fL (80.0-100.0); Monocytes # (auto) 0.5 10 ^3/uL (0-1.3); Monocytes % (auto) 8.8 % (0.0-12.0); Neutrophils # (auto) 3.2 10 ^3/uL (1.6-8.6); Neutrophils % (auto) 52.4 % (37.0-80.0); Nucleated Red Blood Cells % 0.2 %; Platelet Count (auto) 187 10^3/uL (140-450); Red Cell Distribution Width 13.8 % (11.8-14.3); White Blood Cell 6.1 10^3/uL (4.4-10.8)
[2024-05-30 07:14] LABS: Alanine Aminotransferase 14 U/L (7-40); Albumin 4.1 g/dL (3.2-4.8); Alkaline Phosphatase 90 U/L (46-116); Anion Gap 12 (5-15); Aspartate Aminotransferase 18 U/L (13-40); BUN/Creatinine Ratio 20.8 (10.0-20.0); Bilirubin, Total 0.8 mg/dL (0.2-1.0); Blood Urea Nitrogen 16 mg/dL (9-23); Calcium 9.5 mg/dL (8.7-10.4); Carbon Dioxide 26 mmol/L (20-31); Chloride 102 mmol/L (98-107); Potassium 3.8 mmol/L (3.5-5.1); Sodium 140 mmol/L (136-145)
[2024-05-30 07:19] LABS: Glucose 147 mg/dL (74-106)
[2024-05-30] MEDS: amLODIPine BESYLATE 5 MG TAB PO SCH (08:23)
[2024-05-30] MEDS: ENOXAPARIN SOD 40 MG/0.4 ML SYRINGE SC SCH (08:24)
--- NOTE | 2024-05-30 12:59 | DVHINCON2 ---
Date of service: May 30, 2024 Referring Physician ED Reason for Consultation Right knee pain History of Present Illness The patient is a 73-year-old female with past medical history of DM, hypertension, singles, Betancourt's palsy, and hyperlipidemia who presented to [facility] ED with complaint of right knee pain. Patient reports she had a mechanical fall when she tripped and fall over her dogs landing on her right knee, her head, and then right arm with sustained injury. Patient was seen and evaluated in the ED. Patient denied chest pain, no headache, no dizziness, no loss of consciousness, no shortness of breaths, no nausea, no vomiting, no fever, no chills. Patient was admitted for further evaluation and medical management. Patient had total knee arthroplasty seven or eight years ago. She lives alone and cares for herself. Past Medical History DM, High Lipids, HTN, Shingles, Betancourt's palsy, DDD Past Surgical History Appendectomy, Tubal Ligation, Bilateral knee replacement, Cataracts, Alcantar's cyst resection, Carpal tunnel surgery. Family History Reviewed, noncontributory to the management of this case. Past Social History The patient lives at home, denies smoking, alcohol or illicit drugs abuse. Family History: Cardiovascular disease G8 MOTHER G8 FATHER Diabetes mellitus G8 MOTHER G8 FATHER G8 BROTHER FHx: pancreatic cancer Nephew Rectal cancer G8 MOTHER Allergies: Coded Allergies: NO KNOWN ALLERGIES (Unverified , 05/14/21) Home Meds Reported Medications Pantoprazole Sodium Sesquihydr (Protonix) 40 Mg Tab, 40 MG PO DAILY, #30 TAB 04/04/22 Sertraline Hcl (Sertraline Hcl) 100 Mg Tab, 100 MG PO BID, TAB 04/04/22 Simvastatin (Simvastatin) 10 Mg Tab, 10 MG PO QPM, TAB 04/04/22 Amlodipine Besylate (Amlodipine Besylate) 10 Mg Tab, 10 MG PO DAILY, TAB 04/04/22 Metoprolol Tartrate (Metoprolol Tartrate) 100 Mg Tab, 100 MG PO BID, TAB 04/04/22 Losartan Potassium (Losartan Potassium) 100 Mg Tab, 100 MG PO QPM, TAB 04/04/22 Metformin Hydrochloride (METFORMIN HCL ER) 1,000 Mg Tab, 1000 MG PO BID, TAB 04/04/22 Current Medications Current Medications Medications (Trade) Dose Ordered Sig/Valeri Route PRN Reason Start Time Stop Time Status Last Admin Atorvastatin Calcium (Lipitor) 10 mg HS PO 05/29/24 22:00 05/29/24 21:58 Metoprolol Tartrate (Lopressor Tablet) 50 mg BID PO 05/29/24 22:00 05/30/24 08:23 Hydralazine HCl (Apresoline Injection) 10 mg Q6HP PRN IV SBP>150 05/29/24 20:15 Diagnostic Test (Pha) (Accu-Chek Comfort Curve T) 1 strip IQ4HR 05/30/24 00:00 05/30/24 12:00 Insulin Human Regular (InsuLIN R) IQ4HR SC 05/30/24 00:00 05/30/24 08:39 Dextrose 50 ml UD PRN IV Blood Sugar LESS THAN 60 05/29/24 20:15 Sodium Chloride 1,000 ml @ 60 mls/hr [id number] IV 05/29/24 20:15 05/29/24 20:42 Acetaminophen/ Hydrocodone Bitart ([place] 5/325MG Tab) 1 tab Q4HP PRN PO MODERATE PAIN (4-6 PAIN SCALE) 05/29/24 20:15 05/30/24 08:34 Ondansetron HCl (Zofran) 4 mg Q4HP PRN IV NAUSEA / VOMITING 05/29/24 20:15 Docusate Sodium (Colace Capsule) 100 mg BIDPRN PRN PO FOR CONSTIPATION 05/29/24 20:15 Enoxaparin Sodium (Lovenox) 40 mg DAILY SC 05/30/24 10:00 05/30/24 08:24 Acetaminophen (Tylenol Tablet) 650 mg Q6HP PRN PO PAIN SCALE 1-3 OR TEMP>100.4 05/29/24 20:15 Amlodipine Besylate (Norvasc Tablet) 5 mg DAILY PO 05/30/24 10:00 05/30/24 08:23 Nitroglycerin (Ntrostat Sublingual) 0.4 mg Q5MINP PRN SL FOR CHEST PAIN 05/29/24 21:45 Morphine Sulfate 2 mg Q30M PRN IV FOR CHEST PAIN 05/29/24 21:45 Review of Systems Negative on 10 point review except as above Vital Signs Vital Signs Date Time Temp Pulse Resp B/P (MAP) Pulse Ox O2 Delivery O2 Flow Rate FiO2 05/30/24 09:10 98.2 61 17 145/66 (92) 94 98.2 05/30/24 08:00 Room Air* 0 21 Physical Exam Well-developed well-nourished female in no acute distress Alert and oriented x4 Examination of the right knee reveals no erythema, skin intact, there is some ecchymosis and mild edema She is tender to palpation over the patella Limited active and passive range of motion right knee due to anterior knee pain Motor function intact though examination limited by guarding Calf is nontender and there is no distal edema Distal neurovascularly intact X-rays of the right knee suggests possible nondisplaced patella fracture and total knee arthroplasty in good alignment without interface changes. No e ffusion. Labs/Diagnostic Data Labs Test 05/30/24 08:26 05/30/24 06:18 05/29/24 18:41 05/29/24 09:41 Range/Units POC Glucose 144 H 70-106 mg/dl White Blood Count 6.1 4.4-10.8 10^3/uL Red Blood Count 3.90 L 4.0-5.20 10^6/uL Hemoglobin 12.3 12.2-16.2 g/dL Hematocrit 36.0 36.0-46.0 % Mean Corpuscular Volume 92.3 80.0-100.0 fL Mean Corpuscular Hemoglobin 31.6 28.0-32.0 pg Mean Corpuscular Hemoglobin Concent 34.3 32.0-36.0 g/dL Red Cell Distribution Width 13.8 11.8-14.3 % Platelet Count 187 140-450 10^3/uL Mean Platelet Volume 7.7 6.9-10.8 fL Neutrophils (%) (Auto) 52.4 37.0-80.0 % Lymphocytes (%) (Auto) 32.7 10.0-50.0 % Monocytes (%) (Auto) 8.8 0.0-12.0 % Eosinophils (%) (Auto) 5.7 0.0-7.0 % Basophils (%) (Auto) 0.4 0.0-2.0 % Neutrophils # (Auto) 3.2 1.6-8.6 10 ^3/uL Lymphocytes # (Auto) 2.0 0.4-5.4 10 ^3/uL Monocytes # (Auto) 0.5 0-1.3 10 ^3/uL Eosinophils # (Auto) 0.3 0-0.8 10 ^3/uL Basophils # (Auto) 0 0-0.2 10 ^3/uL Nucleated Red Blood Cells 0.2 % Sodium Level 140 # 136-145 mmol/L Potassium Level 3.8 3.5-5.1 mmol/L Chloride Level 102 98-107 mmol/L Carbon Dioxide Level 26 20-31 mmol/L Anion Gap 12 5-15 Blood Urea Nitrogen 16 9-23 mg/dL Creatinine 0.77 0.550-1.02 mg/dL Glomerular Filtration Rate Calc 80 >90 mL/min BUN/Creatinine Ratio 20.8 H 10.0-20.0 Serum Glucose 147 H 74-106 mg/dL Calcium Level 9.5 8.7-10.4 mg/dL Total Bilirubin 0.8 0.2-1.0 mg/dL Aspartate Amino Transferase (AST) 18 13-40 U/L Alanine Aminotransferase (ALT) 14 7-40 U/L Alkaline Phosphatase 90 46-116 U/L Total Protein 7.0 5.7-8.2 g/dL Albumin 4.1 3.2-4.8 g/dL Urine Color Yellow Yellow Urine Clarity Clear Clear Urine pH 6.0 5.0-9.0 Urine Specific [place] 1.018 1.001-1.035 Urine Protein 1+ H Negative Urine Ketones Negative Negative Urine Blood Negative Negative /uL Urine Nitrite Negative Negative Urine Bilirubin Negative Negative Urine Urobilinogen Normal Negative mg/dL Urine Leukocyte Esterase 2+ Negative /uL Urine RBC 3 0 - 4 /hpf Urine Microscopic WBC 16 H 0-5 /HPF Urine Squamous Epithelial Cells Few <5 /hpf Urine Bacteria None seen None Seen /hpf Urine Glucose 3+ H Normal mg/dL Hemoglobin A1c 7.4 H <5.7 % A1C Lactic Acid Level 1.0 0.4-2.0 mmol/L Creatine Kinase 37 34-145 U/L Assessment History of right total knee arthroplasty with nondisplaced patella fracture Plan/Recommendation My recommendations are for nonoperative management. Weight-bearing as tolerated with knee immobilizer and walker. If patient is unable to tolerate the knee immobilizer she should be touchdown weight-bearing only. Follow up with Orthopedics on an outpatient basis 2-3 weeks with new knee x-rays. Plan discussed with: Patient LEIA BOLAÑOS MD May 30, 2024 12:58
[2024-05-30] MEDS: hydrALAZINE HCL 20 MG/ML VL IV PRN (13:56)
--- NOTE | 2024-05-30 20:29 | DVHPN2 ---
Subjective she is confused in bed, oriented x2 Changes from previous H/P or p: No Changes Eyes: No Pain, No Vision change, No Conjunctivae inflammation, No Eyelid inflammation, No Other, No Redness ENT: No Ear pain, No Ear discharge, No Nose pain, No Nose discharge, No Nose congestion, No Mouth pain, No Mouth swelling, No Throat pain, No Throat swelling, No Other Cardiovascular: No Chest Pain, No Palpitations, No Orthopnea, No Paroxysmal Noc. Dyspnea, No Edema, No Lt Headedness, No Other Respiratory: No Cough, No Dry, No Shortness of breath, No SOB with excertion, No Wheezing, No Hemoptysis, No Pleuritic Pain, No Sputum, No Other Gastrointestinal: No Nausea, No Vomiting, No Abdominal Pain, No Diarrhea, No Constipation, No Melena, No Hematochezia, No Other Genitourinary: No Dysuria, No Frequency, No Incontinence, No Hematuria, No Retention, No Other Musculoskeletal: other (Right knee pain); No neck pain, No shoulder pain, No arm pain, No back pain, No hand pain, No leg pain, No foot pain Skin: No Rash, No Lesions, No Jaundice, No Bruising, No Other Objective Vitals Vital Signs Date Time Temp Pulse Resp B/P (MAP) Pulse Ox O2 Delivery O2 Flow Rate FiO2 05/30/24 17:22 98.1 61 18 149/59 (89) 95 98.1 05/30/24 08:00 Room Air* 0 21 Intake/Output Intake and Output 05/30/24 07:00 Intake Total 0 ml Balance 0 ml Intake Oral 0 ml General Appearance: Alert Lungs: Clear to auscultation Cardiovascular: Regular rate, Normal S1, Normal S2 Abdomen: Normal bowel sounds Medications Current Medications Medications Dose Ordered Sig/Valeri Route Start Time Stop Time Status Last Admin Dose Admin Atorvastatin Calcium 10 mg HS PO 05/29/24 22:00 05/29/24 21:58 10 MG Metoprolol Tartrate 50 mg BID PO 05/29/24 22:00 05/30/24 08:23 50 MG Hydralazine HCl 10 mg Q6HP PRN IV 05/29/24 20:15 05/30/24 13:56 10 MG Diagnostic Test (Pha) 1 strip IQ4HR 05/30/24 00:00 05/30/24 12:00 1 STRIP Insulin Human Regular IQ4HR SC 05/30/24 00:00 05/30/24 08:39 2 UNITS Dextrose 50 ml UD PRN IV 05/29/24 20:15 Sodium Chloride 1,000 ml @ 60 mls/hr [id number] IV 05/29/24 20:15 05/30/24 12:55 60 MLS/HR Acetaminophen/ Hydrocodone Bitart 1 tab Q4HP PRN PO 05/29/24 20:15 05/30/24 08:34 1 TAB Ondansetron HCl 4 mg Q4HP PRN IV 05/29/24 20:15 Docusate Sodium 100 mg BIDPRN PRN PO 05/29/24 20:15 Enoxaparin Sodium 40 mg DAILY SC 05/30/24 10:00 05/30/24 08:24 40 MG Acetaminophen 650 mg Q6HP PRN PO 05/29/24 20:15 Amlodipine Besylate 5 mg DAILY PO 05/30/24 10:00 05/30/24 08:23 5 MG Nitroglycerin 0.4 mg Q5MINP PRN SL 05/29/24 21:45 Morphine Sulfate 2 mg Q30M PRN IV 05/29/24 21:45 Laboratory Results Laboratory Tests 05/30/24 06:18 Chemistry Test 05/30/24 06:18 Albumin 4.1 g/dL (3.2-4.8) Calcium Level 9.5 mg/dL (8.7-10.4) Total Protein 7.0 g/dL (5.7-8.2) LFT Test 05/30/24 06:18 Alanine Aminotransferase (ALT) 14 U/L (7-40) Alkaline Phosphatase 90 U/L (46-116) Aspartate Amino Transferase (AST) 18 U/L (13-40) Total Bilirubin 0.8 mg/dL (0.2-1.0) Urinalysis Test 05/29/24 18:41 Urine Color Yellow (Yellow) Urine Clarity Clear (Clear) Urine pH 6.0 (5.0-9.0) Urine Specific [place] 1.018 (1.001-1.035) Urine Protein 1+ (Negative) H Urine Ketones Negative (Negative) Urine Blood Negative /uL (Negative) Urine Nitrite Negative (Negative) Urine Bilirubin Negative (Negative) Urine Urobilinogen Normal mg/dL (Negative) Urine Leukocyte Esterase 2+ /uL (Negative) Urine RBC 3 /hpf (0 - 4) Urine Microscopic WBC 16 /HPF (0-5) H Urine Squamous Epithelial Cells Few /hpf (<5) Urine Bacteria None seen /hpf (None Seen) Urine Glucose 3+ mg/dL (Normal) H Assessment/Plan Assessment/Plan Fall with injury Patella fracture Right knee pain Closed head injury Generalized weakness Per ortho non op management, knee immobilizer and PT PT eval Plan discussed with: Patient Date of Service: May 30, 2024 Billing Provider: TAURUS LIN MD Common Visit Codes: [id number] INP/OBS CARE(HIGH) TAURUS LIN MD May 30, 2024 20:28
[2024-05-31] VITALS (7 sets, daily range): BP systolic 132–165; BP diastolic 50–71; PULSE 58–68; RESP 16–19; TEMP 36.6; O2SAT 90–98
--- NOTE | 2024-05-31 11:24 | DVHPN2 ---
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 General Appearance: Alert, Oriented X3, Cooperative, No acute distress HEENT: Atraumatic Lungs: Clear to auscultation, Normal air movement Chest/Breasts: Other (Tender right ribcage below right breast) Cardiovascular: Regular rate, Normal S1, Normal S2 Abdomen: Normal bowel sounds, Soft, No tenderness Extremities: Other (Knee with a brace; mild tenderness and swelling) Neuro: Normal speech, Cranial nerves 3-12 NL Psych/Mental Status: Mental status NL, Mood NL Medications Current Medications Medications Dose Ordered Sig/Valeri Route Start Time Stop Time Status Last Admin Dose Admin Atorvastatin Calcium 10 mg HS PO 05/29/24 22:00 05/30/24 21:20 10 MG Metoprolol Tartrate 50 mg BID PO 05/29/24 22:00 05/31/24 08:35 50 MG Hydralazine HCl 10 mg Q6HP PRN IV 05/29/24 20:15 05/31/24 05:37 10 MG Diagnostic Test (Pha) 1 strip IQ4HR 05/30/24 00:00 05/31/24 08:28 1 STRIP Insulin Human Regular IQ4HR SC 05/30/24 00:00 05/31/24 08:30 3 UNITS Dextrose 50 ml UD PRN IV 05/29/24 20:15 Sodium Chloride 1,000 ml @ 60 mls/hr [id number] IV 05/29/24 20:15 05/31/24 08:28 60 MLS/HR Acetaminophen/ Hydrocodone Bitart 1 tab Q4HP PRN PO 05/29/24 20:15 05/31/24 08:29 1 TAB Ondansetron HCl 4 mg Q4HP PRN IV 05/29/24 20:15 Docusate Sodium 100 mg BIDPRN PRN PO 05/29/24 20:15 Enoxaparin Sodium 40 mg DAILY SC 05/30/24 10:00 05/31/24 08:28 40 MG Acetaminophen 650 mg Q6HP PRN PO 05/29/24 20:15 Amlodipine Besylate 5 mg DAILY PO 05/30/24 10:00 05/31/24 08:35 5 MG Nitroglycerin 0.4 mg Q5MINP PRN SL 05/29/24 21:45 Morphine Sulfate 2 mg Q30M PRN IV 05/29/24 21:45 Laboratory Results Laboratory Tests 05/30/24 06:18 Urinalysis Test 05/29/24 18:41 Urine Color Yellow (Yellow) Urine Clarity Clear (Clear) Urine pH 6.0 (5.0-9.0) Urine Specific [place] 1.018 (1.001-1.035) Urine Protein 1+ (Negative) H Urine Ketones Negative (Negative) Urine Blood Negative /uL (Negative) Urine Nitrite Negative (Negative) Urine Bilirubin Negative (Negative) Urine Urobilinogen Normal mg/dL (Negative) Urine Leukocyte Esterase 2+ /uL (Negative) Urine RBC 3 /hpf (0 - 4) Urine Microscopic WBC 16 /HPF (0-5) H Urine Squamous Epithelial Cells Few /hpf (<5) Urine Bacteria None seen /hpf (None Seen) Urine Glucose 3+ mg/dL (Normal) H Labs and/or images reviewed: Labs reviewed by me, Image(s) reviewed by me Assessment/Plan Assessment/Plan Covering: #Right knee nondisplaced patellar fracture; no surgical intervention as per Orthopedic surgery; tolerating well physical therapy; needs bedside commode and home health for home PT; Clinical Support Tech consulted #Recurrent falls; tolerating well physical therapy; fall precautions; Clinical Support Tech consulted for home health for home PT #Hypertensive heart disease; adjusted antihypertensive medications; to be discharged later today if blood pressure is better controlled #Diabetes mellitus type 2; continue insulin sliding scale with hypoglycemia protocol #Right ribcage pain after a fall; ordered and reviewed chest x-ray; no fracture Goals of care discussed with the patient for 20 minutes; full code Late Entry. This medical document was created using an electronic medical record system with computerized dictation system. Although this document has been carefully reviewed, there might still be some phonetic and typographical errors. These areas are purely typographical due to imperfections of the software programs, and do not reflect any compromise in the patient's medical care. Plan discussed with: Patient, Other (Nurse) Date of Service: May 31, 2024 Billing Provider: TRE JADE MD Common Visit Codes: 47652-[id number] INP/OBS CARE(HIGH) Secondary Visit Codes: 42377-[id number] CARE PLAN 30 MINUTES (20 minutes) TRE JADE MD May 31, 2024 11:24
[2024-05-31] MEDS: amLODIPine BESYLATE 5 MG TAB PO ONE (11:58)
--- NOTE | 2024-05-31 14:14 | DVH ---
CHEST RADIOGRAPH Indication: RIB CAGE BECAUSE OF THE FALL Technique: Single frontal view of the chest was obtained Comparison: CHEST PORTABLE on DOS: 04/09/22, CXRP on DOS: 04/09/22 FINDINGS: Lines and Tubes: None Lungs: No focal consolidation. Pleura: No effusion. No pneumothorax. Cardiomediastinal contours: Unremarkable Bones: No acute osseous abnormality. IMPRESSION: No acute cardiopulmonary disease.
--- NOTE | 2024-05-31 17:22 | DVHDS2 ---
Discharge Summary Date of Admission May 29, 2024 at 21:33 Date of Discharge: May 31, 2024 Admitting Diagnosis Right knee pain after a fall Labs/Diagnostic Data: Laboratory Results Test 05/31/24 16:35 05/30/24 06:18 05/29/24 18:41 05/29/24 09:41 POC Glucose 161 mg/dl (70-106) White Blood Count 6.1 10^3/uL (4.4-10.8) Red Blood Count 3.90 10^6/uL (4.0-5.20) Hemoglobin 12.3 g/dL (12.2-16.2) Hematocrit 36.0 % (36.0-46.0) Mean Corpuscular Volume 92.3 fL (80.0-100.0) Mean Corpuscular Hemoglobin 31.6 pg (28.0-32.0) Mean Corpuscular Hemoglobin Concent 34.3 g/dL (32.0-36.0) Red Cell Distribution Width 13.8 % (11.8-14.3) Platelet Count 187 10^3/uL (140-450) Mean Platelet Volume 7.7 fL (6.9-10.8) Neutrophils (%) (Auto) 52.4 % (37.0-80.0) Lymphocytes (%) (Auto) 32.7 % (10.0-50.0) Monocytes (%) (Auto) 8.8 % (0.0-12.0) Eosinophils (%) (Auto) 5.7 % (0.0-7.0) Basophils (%) (Auto) 0.4 % (0.0-2.0) Neutrophils # (Auto) 3.2 10 ^3/uL (1.6-8.6) Lymphocytes # (Auto) 2.0 10 ^3/uL (0.4-5.4) Monocytes # (Auto) 0.5 10 ^3/uL (0-1.3) Eosinophils # (Auto) 0.3 10 ^3/uL (0-0.8) Basophils # (Auto) 0 10 ^3/uL (0-0.2) Nucleated Red Blood Cells 0.2 % Sodium Level 140 mmol/L (136-145) Potassium Level 3.8 mmol/L (3.5-5.1) Chloride Level 102 mmol/L (98-107) Carbon Dioxide Level 26 mmol/L (20-31) Anion Gap 12 (5-15) Blood Urea Nitrogen 16 mg/dL (9-23) Creatinine 0.77 mg/dL (0.550-1.02) Glomerular Filtration Rate Calc 80 mL/min (>90) BUN/Creatinine Ratio 20.8 (10.0-20.0) Serum Glucose 147 mg/dL (74-106) Calcium Level 9.5 mg/dL (8.7-10.4) Total Bilirubin 0.8 mg/dL (0.2-1.0) Aspartate Amino Transferase (AST) 18 U/L (13-40) Alanine Aminotransferase (ALT) 14 U/L (7-40) Alkaline Phosphatase 90 U/L (46-116) Total Protein 7.0 g/dL (5.7-8.2) Albumin 4.1 g/dL (3.2-4.8) Urine Color Yellow (Yellow) Urine Clarity Clear (Clear) Urine pH 6.0 (5.0-9.0) Urine Specific [place] 1.018 (1.001-1.035) Urine Protein 1+ (Negative) Urine Ketones Negative (Negative) Urine Blood Negative /uL (Negative) Urine Nitrite Negative (Negative) Urine Bilirubin Negative (Negative) Urine Urobilinogen Normal mg/dL (Negative) Urine Leukocyte Esterase 2+ /uL (Negative) Urine RBC 3 /hpf (0 - 4) Urine Microscopic WBC 16 /HPF (0-5) Urine Squamous Epithelial Cells Few /hpf (<5) Urine Bacteria None seen /hpf (None Seen) Urine Glucose 3+ mg/dL (Normal) Hemoglobin A1c 7.4 % A1C (<5.7) Lactic Acid Level 1.0 mmol/L (0.4-2.0) Creatine Kinase 37 U/L (34-145) Other Laboratory Tests 05/30/24 06:18 Brief Hx & Hospital Course: Covering: #Right knee nondisplaced patellar fracture; no surgical intervention as per Orthopedic surgery; tolerating well physical therapy inpatient;Painter Plate arranged for bedside commode and home health for home PT; will be discharged home to follow up with the primary care provider within one week and with Orthopedic surgery within 2 to 4 weeks #Recurrent falls; tolerating well physical therapy; fall precautions discussed with the patient; Painter Plate arranged for home health for home PT; will be discharged home to follow up with the primary care provider within one week and with Orthopedic surgery within 2 to 4 weeks #Hypertensive heart disease; adjusted antihypertensive medications; blood pressure better controlled upon discharge; to resume home antihypertensive medications; will be discharged home to follow up with the primary care provider within one week #Diabetes mellitus type 2; to resume home antidiabetic medication; will be discharged home to follow up with the primary care provider within one week #Right ribcage pain after a fall; ordered and reviewed chest x-ray; no fracture; will be discharged home to follow up with the primary care provider within one week Physical exam on the day of discharge documented in progress note on May 31, 2024 Late Entry. This medical document was created using an electronic medical record system with computerized dictation system. Although this document has been carefully reviewed, there might still be some phonetic and typographical errors. These areas are purely typographical due to imperfections of the software programs, and do not reflect any compromise in the patient's medical care. Consults/Reason for consult Orthopedic surgery for right knee patellar fracture Condition at Discharge: Stable Final Diagnosis/Problems List Right knee nondisplaced patella fracture Rest of diagnoses as above Discharge Disposition: Home with Health Services (Home PT and bedside commode) Discharge Instruct/Medications Diet: Cardiac 2g Na,low cholest Activity: No Restrictions, As Tolerated Follow Up/Referral: Follow up with discharge clinic with Dr. Jade in one week // Orthopedic surgery within 2 to 4 weeks Medications: Continue home medications Discharge Statement: "Patient was advised to return to the ER or call 911 if any headaches, dizziness, shortness of breath, chest pain, abdominal pain, bleeding, fevers, or worsening of medical condition. Patient was counseled about treatment plan, medications, possible side effects, patientverbalized understanding. All questions were answered to the best of my ability. This discharge took greater then 30 minutes in planning, reviewing documentation, counseling the patient, and discussing with other team members." ASSESSMENT ASSESSMENT Assessment Right knee nondisplaced patella fracture Date of Service: May 31, 2024 Billing Provider: TRE JADE MD Common Visit Codes: 24521-HLQ/OBS DISCH DAY >30min TRE JADE MD May 31, 2024 17:22
[2024-06-01] MEDS ORDERED: amLODIPine BESYLATE 5 MG TAB PO SCH (10:00)
== END 2024-05-31 18:51 | disposition home or self-care (01) | DRG 563 ==
LOC: EDBD 08:39 → EDUNIT# 08:39 → ER 08:39 → OVERFLOW 21:33 → TELE-WESTW 23:00
PROVIDERS: ADMIT Nurse Practitioner Family; ATTEND Nurse Practitioner Family
DX: S82.001A Unspecified fracture of right patella, initial encounter for closed fracture (principal); E78.5 Hyperlipidemia, unspecified; E11.22 Type 2 diabetes mellitus with diabetic chronic kidney disease; N18.30 Chronic kidney disease, stage 3 unspecified; S09.8XXA Other specified injuries of head, initial encounter; I13.10 Hypertensive heart and chronic kidney disease without heart failure, with stage 1 through stage 4 chronic kidney disease, or unspecified chronic kidney disease; Z96.653 Presence of artificial knee joint, bilateral; Z82.49 Family history of ischemic heart disease and other diseases of the circulatory system; Z80.0 Family history of malignant neoplasm of digestive organs; Z83.3 Family history of diabetes mellitus; Z98.51 Tubal ligation status; Z79.84 Long term (current) use of oral hypoglycemic drugs; Z79.899 Other long term (current) drug therapy; W01.0XXA Fall on same level from slipping, tripping and stumbling without subsequent striking against object, initial encounter; Y93.89 Activity, other specified; Y92.89 Other specified places as the place of occurrence of the external cause; Y99.8 Other external cause status
CPT/HCPCS: 36415; 70450; 71045; 73502; 73562; 80053; 81001; 82550; 82962; 83036; 83605; 85025; 97163; G0378; J1815

== ENCOUNTER 2024-12-16 14:50 | Outpatient (CLI) | payer OTHER ==
[2024-12-16 16:15] LABS: Urine Protein, UAD Negative (Negative)
[2024-12-16 16:17] LABS: Hematocrit 35.6 % (36.0-46.0); Hemoglobin 12.2 g/dL (12.2-16.2); Mean Corpuscular Hemoglobin 33.1 pg (28.0-32.0); Mean Corpuscular Volume 96.4 fL (80.0-100.0); Nucleated Red Blood Cells % 0.1 %
[2024-12-16 16:37] LABS: Alanine Aminotransferase 11 U/L (7-40); Alkaline Phosphatase 78 U/L (46-116); Anion Gap 8 (5-15); Calcium 9.0 mg/dL (8.7-10.4); Carbon Dioxide 25 mmol/L (20-31); Chloride 106 mmol/L (98-107); Potassium 4.1 mmol/L (3.5-5.1); Sodium 139 mmol/L (136-145); Total Protein 7.4 g/dL (5.7-8.2); Triglycerides 119 mg/dL (< 150)
[2024-12-16 16:38] LABS: Albumin 4.2 g/dL (3.2-4.8); BUN/Creatinine Ratio 11.7 (10.0-20.0); Bilirubin, Total 0.9 mg/dL (0.2-1.0); Blood Urea Nitrogen 9 mg/dL (9-23); Cholesterol 177 mg/dL (< 200)
[2024-12-16 16:39] LABS: Glucose 142 mg/dL (74-106); HDL Cholesterol 70 mg/dL (40-59)
[2024-12-16 16:42] LABS: Free T4 (Free Thyroxine) 1.2 ng/dL (0.89-1.76)
== END 2024-12-16 17:00 | disposition home or self-care (01) ==
LOC: LAB 14:50
PROVIDERS: ATTEND Internal Medicine
DX: I10 Essential (primary) hypertension (principal); Z79.899 Other long term (current) drug therapy
CPT/HCPCS: 36415; 80053; 80061; 81001; 82043; 82607; 82746; 83540; 84439; 84443; 85025

== ENCOUNTER → 2025-01-06 | Outpatient (CLI) | payer OTHER | END | disposition home or self-care (01) | LOC: LAB 13:58 | PROVIDERS: ATTEND Internal Medicine | DX: I10 Essential (primary) hypertension (principal) | CPT/HCPCS: 82274 ==